=== PATIENT | female | born 1995 | race African-American/Black ===

== ENCOUNTER 2017-01-17 14:21 | Outpatient (CLI) | payer OTHER ==
--- NOTE | 2017-01-17 16:39 | Magnetic Resonance Report ---
MRI scan of brain: History: Headache. Technique: Multiplanar, multisequence images were obtained without contrast injection. Findings: No evidence of restricted diffusion. Ventricles are normal in size and midline in location. No evidence of acute ischemia, hemorrhage or mass. There is extra-axial fluid collection noted in the anterior aspect of the right temporal lobe measuring 2.4 x 3.8 cm. adjacent to the sphenoid wing probably suggestive of ileus or a arachnoid cyst or chronic infarct among other causes. Normal brainstem and cerebellum. Normal sinuses and mastoid air cells. Impression: Fluid collection in the anterior aspect of right temporal lobe probably arachnoid cyst or chronic infarct among other causes.
== END 2017-01-17 14:22 | disposition home or self-care (01) ==
LOC: MRI 14:21
PROVIDERS: ATTEND Psychiatry & Neurology Neurology
DX: G43.709 Chronic migraine without aura, not intractable, without status migrainosus (principal)
CPT/HCPCS: 70551